=== PATIENT | male | born 1955 | race Caucasian/White ===

== ENCOUNTER 2019-07-28 09:02 | Day surgery (SDC) | payer BC ==
[~2019-07-28] VITALS: Ht 185.4 cm; Wt 75.0 kg
[2019-07-28] MEDS ORDERED: SODIUM CHLORIDE 0.9% 1,000 ML IV SCH (09:24)
[2019-07-28 09:27] VITALS: BP 142/71
[2019-07-28] MEDS ORDERED: HYDR25TA6 PO (09:40)
[2019-07-28 09:57] LABS: BASOPHILS # (AUTO) 0.06 x10^3/uL (0-0.1); BASOPHILS % (AUTO) 1 % (0-1); EOSINOPHILS # (AUTO) 0.21 x10^3/uL (0-0.4); EOSINOPHILS % (AUTO) 3 % (1-7); LYMPHOCYTES # (AUTO) 1.93 x10^3/uL (1-3.4); LYMPHOCYTES % (AUTO) 26 % (22-44); MD NO; MEAN PLATELET VOLUME 8.9 fL (7.4-10.4); MONOCYTES # (AUTO) 0.66 x10^3/uL (0.2-0.8); MONOCYTES % (AUTO) 9 % (2-9); NEUTROPHILS % (AUTO) 61 % (42-75); PLATELET COUNT 288 x10^3/uL (130-400); RED BLOOD COUNT 4.69 x10^6/uL (4.38-5.82); RED CELL DISTRIBUTION WIDTH 12.9 % (9.4-14.8)
[2019-07-28 10:01] LABS: ANION GAP 9 mmol/L (5-15); CALCIUM 8.6 mg/dL (8.5-10.1); CHLORIDE 106 mmol/L (98-107)
[2019-07-28] MEDS ORDERED: FENTANYL PF 100 MCG/2ML ONE (10:49)
[2019-07-28] MEDS ORDERED: LIDOCAINE 2%, 20ML ONE (10:49)
[2019-07-28] MEDS ORDERED: MIDAZOLAM 1 MG/ML, 5ML ONE (10:49)
== END 2019-07-28 14:09 | disposition home or self-care (01) ==
LOC: CACL 09:02
PROVIDERS: ATTEND Internal Medicine Cardiovascular Disease
DX: Z01.810 Encounter for preprocedural cardiovascular examination (principal); Q23.1 Congenital insufficiency of aortic valve; I25.10 Atherosclerotic heart disease of native coronary artery without angina pectoris; I25.84 Coronary atherosclerosis due to calcified coronary lesion; I10 Essential (primary) hypertension; Z79.899 Other long term (current) drug therapy; Z90.49 Acquired absence of other specified parts of digestive tract; Z98.890 Other specified postprocedural states; Z82.49 Family history of ischemic heart disease and other diseases of the circulatory system; Z82.3 Family history of stroke; Z83.3 Family history of diabetes mellitus
CPT/HCPCS: 36415; 80048; 85025; 93454; 99156; C1769; C1894; J2250; J3010; Q9967

== ENCOUNTER 2019-08-08 07:30 | Inpatient (IN) | payer BC ==
[~2019-08-08] VITALS: Ht 185.4 cm; Wt 78.0 kg
[~2019-08-08 07:30] MED LIST: HYDR25TA6 PO
[2019-09-03 13:20] LABS: MICROSCOPIC NOT IND
[2019-09-03 13:26] LABS: BASOPHILS # (AUTO) 0.03 x10^3/uL (0-0.1); BASOPHILS % (AUTO) 0 % (0-1); EOSINOPHILS # (AUTO) 0.34 x10^3/uL (0-0.4); EOSINOPHILS % (AUTO) 5 % (1-7); LYMPHOCYTES # (AUTO) 1.96 x10^3/uL (1-3.4); LYMPHOCYTES % (AUTO) 26 % (22-44); MD NO; MEAN CORPUSCULAR HEMOGLOBIN 30.2 pg (27.5-34.5); MEAN CORPUSCULAR HGB CONC 33.6 g/dL (33.2-36.2); MEAN CORPUSCULAR VOLUME 89.8 fL (81-97); MEAN PLATELET VOLUME 8.8 fL (7.4-10.4); MONOCYTES # (AUTO) 0.75 x10^3/uL (0.2-0.8); MONOCYTES % (AUTO) 10 % (2-9); NEUTROPHILS # (AUTO) 4.45 x10^3/uL (1.8-6.8); NEUTROPHILS % (AUTO) 59 % (42-75); PLATELET COUNT 273 x10^3/uL (130-400); RED BLOOD COUNT 5.02 x10^6/uL (4.38-5.82); RED CELL DISTRIBUTION WIDTH 13.4 % (9.4-14.8)
[2019-09-03 13:36] LABS: INTERNATIONAL NORMALIZED RATIO 0.99 (0.93-1.1); PROTHROMBIN TIME 10.5 Seconds (9.6-11.5)
[2019-09-03 13:37] LABS: ALANINE AMINOTRANSFERASE 21 U/L (12-78); ALBUMIN 4.1 g/dL (3.4-5.0); CALCIUM 9.8 mg/dL (8.5-10.1); CREATININE 0.88 mg/dL (0.7-1.3)
[2019-09-03 13:42] LABS: ALKALINE PHOSPHATASE 54 U/L (45-117); ANION GAP 5 mmol/L (5-15); BILIRUBIN,TOTAL 0.3 mg/dL (0.2-1.0); CHLORIDE 102 mmol/L (98-107); TOTAL PROTEIN 7.9 g/dL (6.4-8.2)
[2019-09-04 04:46] VITALS: BP_SYST 117; BP_SYST 137; BP_DIAS 74; BP_DIAS 75
[2019-09-04] MEDS ORDERED: DO NOT GIVE MC SCH (05:00)
[2019-09-04] MEDS ORDERED: INSULIN LISPRO 100 UNITS/ML, PEN SQ-INSULIN SCH (05:00)
[2019-09-04] MEDS ORDERED: CHLORHEXIDINE 15 ML UDC MM SCH (05:00)
[2019-09-04] MEDS: MUPIROCIN OINT 2%, 22GM TP SCH ×2 (05:33→20:47)
[2019-09-04 06:05] VITALS: BP_SYST 119; BP_SYST 123; BP_DIAS 66; BP_DIAS 72
[2019-09-04 06:27] VITALS: BP 107/71
[2019-09-04] MEDS ORDERED: MIDAZOLAM 10MG/2 ML ONE (06:39)
[2019-09-04] MEDS ORDERED: FENTANYL PF 250 MCG/5ML ONE ×4 (06:39→06:40)
[2019-09-04] MEDS ORDERED: ROCURONIUM 10MG/ML,5ML ONE ×3 (06:40→08:37)
[2019-09-04] MEDS ORDERED: AMINOCAPROIC ACID 250 MG/ML, 20ML ONE ×2 (06:40)
[2019-09-04] MEDS ORDERED: PROPOFOL 10 MG/ML, 20ML ONE (06:40)
[2019-09-04] MEDS ORDERED: MAGNESIUM SULFATE PMX 2GM/50ML 50 ML ONE (06:51)
[2019-09-04] MEDS ORDERED: PAPAVERINE 30 MG/ML, 2ML ONE (06:57)
[2019-09-04] MEDS ORDERED: HEPARIN 1,000 UNITS/ML, 10ML ONE (06:57)
[2019-09-04] MEDS ORDERED: METOPROLOL 1 MG/ML, 5ML ONE (07:22)
[2019-09-04] MEDS ORDERED: PROTAMINE SULFATE 10 MG/ML, 25ML ONE (07:25)
[2019-09-04] MEDS ORDERED: AMIODARONE 50 MG/ML, 3ML ONE (07:25)
[2019-09-04] MEDS ORDERED: NITROGLYCERIN/D5W PMX 250 ML IV PRN (07:28)
[2019-09-04] MEDS ORDERED: DEXMEDETOMIDINE 200 MCG in SODIUM CHLORIDE 0.9% 48 ML IV PRN ×2 (07:28→07:30)
[2019-09-04] MEDS ORDERED: DOBUTAMINE 250 MG in SODIUM CHLORIDE 0.9% 230 ML IV PRN (07:28)
[2019-09-04] MEDS ORDERED: SODIUM CHLORIDE 0.9% 1,000 ML IV PRN (07:28)
[2019-09-04] MEDS ORDERED: PHENYLEPHRINE 50 MG in SODIUM CHLORIDE 0.9% 245 ML IV PRN ×2 (07:28→07:30)
[2019-09-04] MEDS ORDERED: REGULAR INSULIN 100 UNITS in SODIUM CHLORIDE 0.9% 99 ML IV PRN ×2 (07:28→07:30)
[2019-09-04] MEDS ORDERED: VASOPRESSIN 20 UNIT in SODIUM CHLORIDE 0.9% 99 ML IV PRN (07:28)
[2019-09-04] MEDS: KSCALE TO 4.5 IV SCH ×3 (07:30→21:33)
[2019-09-04] MEDS ORDERED: SODIUM BICARB 8.4%, 50ML SYRINGE IV PRN (07:30)
[2019-09-04] MEDS ORDERED: INSULIN REGULAR 100 UNITS/ML, 3ML VIAL IVPush PRN (07:30)
[2019-09-04] MEDS ORDERED: PROCHLORPERAZINE 5 MG/ML, 2ML IVPush PRN (07:30)
[2019-09-04] MEDS ORDERED: POTASSIUM CHLORIDE 80 MEQ, SODIUM BICARBONATE 8.4% 10 MEQ, MAGNESIUM SULFATE 0.5 GM, LI... IV PRN (07:30)
[2019-09-04] MEDS ORDERED: MIDAZOLAM 1 MG/ML, 5ML IVPush PRN (07:30)
[2019-09-04] MEDS ORDERED: ACETAMINOPHEN 650 MG SUPP PR PRN (07:30)
[2019-09-04] MEDS ORDERED: BISACODYL 10 MG SUPP PR PRN (07:30)
[2019-09-04] MEDS ORDERED: DEXTROSE 50%, 50ML SYRINGE IVPush PRN (07:30)
[2019-09-04] MEDS ORDERED: GLUCAGON 1 MG IM PRN (07:30)
[2019-09-04] MEDS ORDERED: BISACODYL 5 MG EC TABLET PO PRN (07:30)
[2019-09-04] MEDS ORDERED: FENTANYL PF 100 MCG/2ML IVPush PRN (07:30)
[2019-09-04] MEDS ORDERED: CEFUROXIME 1.5 GM in SODIUM CHLORIDE 0.9% 50 ML IVPB PRN (07:30)
[2019-09-04] MEDS ORDERED: HYDROcodone/APAP 5/325 TABLET PO PRN (07:30)
[2019-09-04] MEDS ORDERED: VANCOMYCIN 1,100 MG in SODIUM CHLORIDE 0.9% 250 ML IV PRN (07:30)
[2019-09-04] MEDS ORDERED: LACTATED RINGERS 1,000 ML IV PRN (07:30)
[2019-09-04] MEDS ORDERED: EPINEPHRINE 5 MG in SODIUM CHLORIDE 0.9% 245 ML IV PRN ×2 (07:30)
[2019-09-04] MEDS ORDERED: ALBUMIN HUMAN 5% 500 ML IV PRN (07:30)
[2019-09-04] MEDS ORDERED: ACETAMINOPHEN 325 MG TABLET PO PRN (07:30)
[2019-09-04] MEDS ORDERED: MANNITOL PMX 20% 500 ML IVPB PRN (07:30)
[2019-09-04] MEDS ORDERED: DEXTROSE 4 GM TAB.CHEW PO PRN (07:30)
[2019-09-04] MEDS: DOCUSATE 100 MG CAPSULE PO SCH ×2 (09:00→20:40)
[2019-09-04] MEDS: SODIUM CHLORIDE FLUSH 10ML SYR IVF SCH ×4 (09:00→20:40)
[2019-09-04] MEDS ORDERED: HEPARIN 1,000 UNITS/ML, 10ML IV ONE (09:00)
[2019-09-04] MEDS ORDERED: PAPAVERINE 30 MG/ML, 2ML IVPush ONE (09:33)
[2019-09-04] MEDS ORDERED: CALCIUM CHLORIDE 10%, 10ML SYR ONE (11:03)
[2019-09-04] MEDS ORDERED: LIDOCAINE-MPF 2% ,5ML ONE (12:09)
[2019-09-04] MEDS ORDERED: ALBUMIN HUMAN 25% 50 ML ONE (12:09)
[2019-09-04] MEDS ORDERED: methylPREDNISolone SOD SUCC 125 MG/2 ML ONE (12:09)
[2019-09-04] MEDS ORDERED: SODIUM BICARBONATE 1 MEQ/ML, 50ML VIAL ONE (12:09)
[2019-09-04] MEDS ORDERED: HEPARIN 1,000 UNITS/ML, 30ML ONE (12:09)
[2019-09-04] MEDS: MAGNESIUM SULFATE 1 GM in SODIUM CHLORIDE 0.9% 100 ML IVPB SCH (12:14)
[2019-09-04 12:28] LABS: GLUCOSE BY BLOOD GAS ANALYZER 110 mg/dL (70-110); HEMOGLOBIN BY BLOOD GAS ANALYZ 11.6 g/dL (14.0-18.0); POTASSIUM BY BLOOD GAS ANALYZR 3.3 mmol/L (3.6-5.5)
[2019-09-04 12:40] LABS: INTERNATIONAL NORMALIZED RATIO 1.3 (0.93-1.1); PROTHROMBIN TIME 13.8 Seconds (9.6-11.5)
[2019-09-04] MEDS ORDERED: POTASSIUM CHLORIDE 30 MEQ in SODIUM CHLORIDE 0.9% 100 ML IV ONE (13:00)
[2019-09-04] MEDS: INSULIN LISPRO 100 UNITS/ML, PEN SQ-INSULIN SCH ×3 (13:20→20:46)
[2019-09-04] MEDS: MUPIROCIN OINT 2%, 22GM NAS SCH ×2 (13:23→20:41)
[2019-09-04] MEDS: OXYcodone IR 5MG TABLET PO PRN ×4 (15:08→22:50)
[2019-09-04] MEDS: HYDROcodone/APAP 10/325 MG TABLET PO PRN ×2 (16:44→20:40)
[2019-09-04] MEDS: ONDANSETRON 2MG/ML, 2ML IVPush PRN (16:50)
[2019-09-04] MEDS: CEFUROXIME 1.5 GM in SODIUM CHLORIDE 0.9% 50 ML IVPB SCH (20:21)
[2019-09-04] MEDS: VANCOMYCIN 1,100 MG in SODIUM CHLORIDE 0.9% 250 ML IVPB SCH (21:33)
[2019-09-05] MEDS: HYDROcodone/APAP 10/325 MG TABLET PO PRN ×3 (00:45→22:03)
[2019-09-05] MEDS: OXYcodone IR 5MG TABLET PO PRN ×3 (04:08→11:57)
[2019-09-05 04:36] LABS: MEAN CORPUSCULAR HEMOGLOBIN 30.1 pg (27.5-34.5); MEAN CORPUSCULAR HGB CONC 33.4 g/dL (33.2-36.2); MEAN CORPUSCULAR VOLUME 90.2 fL (81-97); MEAN PLATELET VOLUME 9.1 fL (7.4-10.4); PLATELET COUNT 157 x10^3/uL (130-400); RED BLOOD COUNT 3.76 x10^6/uL (4.38-5.82); RED CELL DISTRIBUTION WIDTH 13.1 % (9.4-14.8)
[2019-09-05 04:39] LABS: INTERNATIONAL NORMALIZED RATIO 1.06 (0.93-1.1); PROTHROMBIN TIME 11.2 Seconds (9.6-11.5)
[2019-09-05 04:42] LABS: ALBUMIN 3.2 g/dL (3.4-5.0); ANION GAP 5 mmol/L (5-15); CALCIUM 8.1 mg/dL (8.5-10.1); CHLORIDE 111 mmol/L (98-107)
[2019-09-05 04:47] LABS: MD YES
[2019-09-05 04:53] VITALS: BP 94/53
[2019-09-05 04:53] LABS: <PLATELET ESTIMATE> ADEQUATE; <PLT MORPHOLOGY> NORMAL PLT MORPH; <RBC MORPHOLOGY> NORMAL; BAND#(MANUAL) 0.98 x10^3/uL; BANDS%(MANUAL) 5 % (0-7); LYMPH#(MANUAL) 1.57 x10^3/uL (1-3.4); LYMPHS% (MANUAL) 8 % (22-44); MONOS#(MANUAL) 1.76 x10^3/uL (0.3-2.7); MONOS% (MANUAL) 9 % (2-9); SEG#(MANUAL) 15.29 x10^3/uL (1.8-6.8); SEGS% (MANUAL) 78 % (42-75)
[2019-09-05] MEDS: KSCALE TO 4.5 IV SCH (06:17)
[2019-09-05] MEDS ORDERED: POTASSIUM CHLORIDE PMX 100 ML IV ONE (06:30)
[2019-09-05] MEDS ORDERED: MAGNESIUM HYDROXIDE 8%, 30ML UDC PO PRN (08:00)
[2019-09-05] MEDS: INSULIN LISPRO 100 UNITS/ML, PEN SQ-INSULIN SCH ×4 (08:05→20:35)
[2019-09-05] MEDS: VANCOMYCIN 1,100 MG in SODIUM CHLORIDE 0.9% 250 ML IVPB SCH (08:24)
[2019-09-05] MEDS: CHLORHEXIDINE 15 ML UDC MM SCH ×2 (08:24→20:15)
[2019-09-05] MEDS: FUROSEMIDE 20 MG/2 ML IV SCH (08:24)
[2019-09-05] MEDS: KETOROLAC 30 MG/1 ML IVPush SCH ×3 (08:24→20:15)
[2019-09-05] MEDS: DOCUSATE 100 MG CAPSULE PO SCH ×2 (08:25→20:15)
[2019-09-05] MEDS: POTASSIUM CHLORIDE 10 MEQ TABLET.ER PO SCH (08:25)
[2019-09-05] MEDS: ASPIRIN 81 MG TABLET EC PO SCH (08:25)
[2019-09-05] MEDS: SODIUM CHLORIDE FLUSH 10ML SYR IVF SCH ×5 (08:26→20:35)
[2019-09-05] MEDS: MUPIROCIN OINT 2%, 22GM NAS SCH ×2 (08:28→22:02)
[2019-09-05] MEDS: CEFUROXIME 1.5 GM in SODIUM CHLORIDE 0.9% 50 ML IVPB SCH (08:49)
[2019-09-05] MEDS: MAGNESIUM SULFATE 1 GM in SODIUM CHLORIDE 0.9% 100 ML IVPB SCH (10:19)
[2019-09-05 11:58] VITALS: BP 91/57
[2019-09-05] MEDS: ONDANSETRON 2MG/ML, 2ML IVPush PRN (12:19)
[2019-09-05 13:54] VITALS: BP 90/50
[2019-09-05 16:20] VITALS: BP 110/64
[2019-09-05 19:11] VITALS: BP 112/61
[2019-09-05] MEDS: ATORVASTATIN 40 MG TABLET PO SCH (20:15)
[2019-09-06 01:05] VITALS: BP 107/57
[2019-09-06] MEDS: KETOROLAC 30 MG/1 ML IVPush SCH ×4 (02:06→21:48)
[2019-09-06] MEDS: HYDROcodone/APAP 10/325 MG TABLET PO PRN (05:50)
[2019-09-06 06:00] LABS: INTERNATIONAL NORMALIZED RATIO 1.07 (0.93-1.1); PROTHROMBIN TIME 11.4 Seconds (9.6-11.5)
[2019-09-06 06:01] LABS: ANION GAP 5 mmol/L (5-15); CALCIUM 7.9 mg/dL (8.5-10.1); CHLORIDE 101 mmol/L (98-107); CREATININE 0.78 mg/dL (0.7-1.3)
[2019-09-06 06:07] LABS: MEAN CORPUSCULAR HGB CONC 33.3 g/dL (33.2-36.2); MEAN CORPUSCULAR VOLUME 89.9 fL (81-97); RED BLOOD COUNT 3.26 x10^6/uL (4.38-5.82); RED CELL DISTRIBUTION WIDTH 13.7 % (9.4-14.8)
[2019-09-06 06:34] LABS: MD YES; MEAN PLATELET VOLUME 9.5 fL (7.4-10.4); PLATELET COUNT 115 x10^3/uL (130-400)
[2019-09-06 06:36] LABS: LYMPH#(MANUAL) 2.12 x10^3/uL (1-3.4); LYMPHS% (MANUAL) 12 % (22-44); MONOS#(MANUAL) 1.77 x10^3/uL (0.3-2.7); MONOS% (MANUAL) 10 % (2-9); SEG#(MANUAL) 13.81 x10^3/uL (1.8-6.8); SEGS% (MANUAL) 78 % (42-75)
[2019-09-06 06:38] LABS: <RBC MORPHOLOGY> NORMAL
[2019-09-06 06:40] LABS: <PLATELET ESTIMATE> DECREASED; <PLT MORPHOLOGY> NORMAL PLT MORPH
[2019-09-06] MEDS: INSULIN LISPRO 100 UNITS/ML, PEN SQ-INSULIN SCH ×4 (07:00→20:30)
[2019-09-06 07:28] VITALS: BP 127/67
[2019-09-06] MEDS: SODIUM CHLORIDE FLUSH 10ML SYR IVF SCH ×6 (09:00→20:20)
[2019-09-06] MEDS: ASPIRIN 81 MG TABLET EC PO SCH (09:18)
[2019-09-06] MEDS: DOCUSATE 100 MG CAPSULE PO SCH ×2 (09:18→20:20)
[2019-09-06] MEDS: POTASSIUM CHLORIDE 10 MEQ TABLET.ER PO SCH (09:18)
[2019-09-06] MEDS: CHLORHEXIDINE 15 ML UDC MM SCH ×2 (09:18→20:21)
[2019-09-06] MEDS: MUPIROCIN OINT 2%, 22GM NAS SCH ×2 (09:19→20:21)
[2019-09-06] MEDS: FUROSEMIDE 20 MG/2 ML IV SCH (09:19)
[2019-09-06] MEDS: MAGNESIUM SULFATE 1 GM in SODIUM CHLORIDE 0.9% 100 ML IVPB SCH (09:34)
[2019-09-06 13:05] VITALS: BP 125/71
[2019-09-06] MEDS: ONDANSETRON 2MG/ML, 2ML IVPush PRN (16:26)
[2019-09-06 16:34] VITALS: BP 134/74
[2019-09-06] MEDS ORDERED: OMNIPAQUE 350 MG/ML, 100ML BOTTLE ONE (17:40)
[2019-09-06 20:04] VITALS: BP 133/77
[2019-09-06] MEDS: ATORVASTATIN 40 MG TABLET PO SCH (20:19)
[2019-09-06] MEDS: METOPROLOL TARTRATE 25 MG TAB PO SCH (20:20)
[2019-09-06] MEDS: CLOPIDOGREL 75 MG TABLET PO SCH (20:20)
[2019-09-07 00:33] VITALS: BP 130/74
[2019-09-07] MEDS: METOPROLOL TARTRATE 25 MG TAB PO SCH ×2 (04:44→17:22)
[2019-09-07] MEDS: KETOROLAC 30 MG/1 ML IVPush SCH ×4 (04:44→21:59)
[2019-09-07 05:12] LABS: MEAN CORPUSCULAR HEMOGLOBIN 30.4 pg (27.5-34.5); MEAN CORPUSCULAR HGB CONC 33.9 g/dL (33.2-36.2); MEAN CORPUSCULAR VOLUME 89.9 fL (81-97); PLATELET COUNT 123 x10^3/uL (130-400); RED BLOOD COUNT 3.26 x10^6/uL (4.38-5.82); RED CELL DISTRIBUTION WIDTH 13.3 % (9.4-14.8)
[2019-09-07 05:21] LABS: ANION GAP 6 mmol/L (5-15); CALCIUM 8.2 mg/dL (8.5-10.1); CHLORIDE 102 mmol/L (98-107); CREATININE 0.66 mg/dL (0.7-1.3)
[2019-09-07 05:39] LABS: BASOPHILS # (AUTO) 0.07 x10^3/uL (0-0.1); BASOPHILS % (AUTO) 1 % (0-1); EOSINOPHILS # (AUTO) 0.01 x10^3/uL (0-0.4); EOSINOPHILS % (AUTO) 0 % (1-7); LYMPHOCYTES # (AUTO) 0.88 x10^3/uL (1-3.4); LYMPHOCYTES % (AUTO) 7 % (22-44); MD SCAN; MONOCYTES # (AUTO) 1.56 x10^3/uL (0.2-0.8); MONOCYTES % (AUTO) 12 % (2-9); NEUTROPHILS % (AUTO) 80 % (42-75)
[2019-09-07 07:09] VITALS: BP 121/68
[2019-09-07] MEDS: INSULIN LISPRO 100 UNITS/ML, PEN SQ-INSULIN SCH ×2 (07:17→11:00)
[2019-09-07] MEDS ORDERED: CLOPIDOGREL 75 MG TABLET PO SCH (09:00)
[2019-09-07] MEDS: SODIUM CHLORIDE FLUSH 10ML SYR IVF SCH ×6 (09:00→20:11)
[2019-09-07] MEDS: DOCUSATE 100 MG CAPSULE PO SCH ×2 (09:36→20:10)
[2019-09-07] MEDS: POTASSIUM CHLORIDE 10 MEQ TABLET.ER PO SCH (09:37)
[2019-09-07] MEDS: ASPIRIN 81 MG TABLET EC PO SCH (09:37)
[2019-09-07] MEDS: CLOPIDOGREL 75 MG TABLET PO SCH (09:37)
[2019-09-07] MEDS: FUROSEMIDE 40 MG/4 ML IV SCH (09:38)
[2019-09-07] MEDS: MUPIROCIN OINT 2%, 22GM NAS SCH ×2 (09:39→20:10)
[2019-09-07 12:25] VITALS: BP 129/77
--- NOTE | 2019-09-07 13:04 | NUR ---
REC: regular/thins; do not anticipate need for [employer] intervention in regards to dysphagia at time of discharge. Addendum: 09/07/19 at 1305 by Cherelle SINGH Amended: Links added.
[2019-09-07 19:23] VITALS: BP 122/78
[2019-09-07] MEDS: ATORVASTATIN 40 MG TABLET PO SCH (20:10)
[2019-09-08 01:41] VITALS: BP 106/59
[2019-09-08 05:05] LABS: MEAN CORPUSCULAR HEMOGLOBIN 30.3 pg (27.5-34.5); MEAN CORPUSCULAR HGB CONC 33.9 g/dL (33.2-36.2); MEAN CORPUSCULAR VOLUME 89.4 fL (81-97); MEAN PLATELET VOLUME 9.2 fL (7.4-10.4); PLATELET COUNT 156 x10^3/uL (130-400); RED CELL DISTRIBUTION WIDTH 13.4 % (9.4-14.8)
[2019-09-08 05:07] LABS: ANION GAP 5 mmol/L (5-15); CALCIUM 8.2 mg/dL (8.5-10.1); CHLORIDE 104 mmol/L (98-107); CREATININE 0.68 mg/dL (0.7-1.3)
[2019-09-08 05:31] VITALS: BP 111/58
[2019-09-08] MEDS: METOPROLOL TARTRATE 25 MG TAB PO SCH ×2 (05:34→18:01)
[2019-09-08] MEDS: KETOROLAC 30 MG/1 ML IVPush SCH ×3 (05:35→18:01)
[2019-09-08 05:56] LABS: BASOPHILS # (AUTO) 0.04 x10^3/uL (0-0.1); BASOPHILS % (AUTO) 0 % (0-1); EOSINOPHILS # (AUTO) 0.06 x10^3/uL (0-0.4); EOSINOPHILS % (AUTO) 1 % (1-7); LYMPHOCYTES # (AUTO) 1.01 x10^3/uL (1-3.4); LYMPHOCYTES % (AUTO) 10 % (22-44); MD SCAN; MONOCYTES # (AUTO) 1.52 x10^3/uL (0.2-0.8); MONOCYTES % (AUTO) 15 % (2-9); NEUTROPHILS # (AUTO) 7.73 x10^3/uL (1.8-6.8); NEUTROPHILS % (AUTO) 75 % (42-75)
[2019-09-08 08:15] VITALS: BP 117/69
[2019-09-08] MEDS: CLOPIDOGREL 75 MG TABLET PO SCH (09:25)
[2019-09-08] MEDS: DOCUSATE 100 MG CAPSULE PO SCH ×2 (09:25→20:36)
[2019-09-08] MEDS: POTASSIUM CHLORIDE 10 MEQ TABLET.ER PO SCH (09:25)
[2019-09-08] MEDS: ASPIRIN 81 MG TABLET EC PO SCH (09:25)
[2019-09-08] MEDS: FUROSEMIDE 40 MG/4 ML IV SCH (09:26)
[2019-09-08] MEDS: SODIUM CHLORIDE FLUSH 10ML SYR IVF SCH ×6 (09:34→20:37)
[2019-09-08] MEDS: MUPIROCIN OINT 2%, 22GM NAS SCH ×2 (09:41→20:36)
[2019-09-08 12:53] VITALS: BP 120/67
[2019-09-08 19:09] VITALS: BP 122/66
[2019-09-08] MEDS: ATORVASTATIN 40 MG TABLET PO SCH (20:36)
[2019-09-09 01:30] VITALS: BP 125/71
[2019-09-09 05:56] VITALS: BP 113/69
[2019-09-09] MEDS: KETOROLAC 30 MG/1 ML IVPush SCH ×3 (05:57→12:26)
[2019-09-09] MEDS: METOPROLOL TARTRATE 25 MG TAB PO SCH (05:58)
[2019-09-09 06:16] LABS: BASOPHILS # (AUTO) 0.02 x10^3/uL (0-0.1); BASOPHILS % (AUTO) 0 % (0-1); EOSINOPHILS # (AUTO) 0.37 x10^3/uL (0-0.4); EOSINOPHILS % (AUTO) 4 % (1-7); LYMPHOCYTES # (AUTO) 1.23 x10^3/uL (1-3.4); LYMPHOCYTES % (AUTO) 14 % (22-44); MD NO; MEAN CORPUSCULAR HEMOGLOBIN 29.5 pg (27.5-34.5); MEAN CORPUSCULAR HGB CONC 32.9 g/dL (33.2-36.2); MEAN CORPUSCULAR VOLUME 89.6 fL (81-97); MEAN PLATELET VOLUME 8.4 fL (7.4-10.4); MONOCYTES # (AUTO) 1.14 x10^3/uL (0.2-0.8); MONOCYTES % (AUTO) 13 % (2-9); NEUTROPHILS # (AUTO) 6.26 x10^3/uL (1.8-6.8); NEUTROPHILS % (AUTO) 69 % (42-75); PLATELET COUNT 217 x10^3/uL (130-400); RED BLOOD COUNT 3.61 x10^6/uL (4.38-5.82); RED CELL DISTRIBUTION WIDTH 13.8 % (9.4-14.8)
[2019-09-09 06:19] LABS: ANION GAP 7 mmol/L (5-15); CALCIUM 8.4 mg/dL (8.5-10.1); CHLORIDE 107 mmol/L (98-107); CREATININE 0.69 mg/dL (0.7-1.3)
[2019-09-09 06:50] VITALS: BP 126/71
[2019-09-09] MEDS ORDERED: ASPI81TA45 PO (08:16)
[2019-09-09] MEDS ORDERED: METO25TA35 PO (08:16)
[2019-09-09] MEDS ORDERED: CLOP75TA PO (08:16)
[2019-09-09] MEDS ORDERED: ATOR40TA78 PO (08:16)
[2019-09-09] MEDS: SODIUM CHLORIDE FLUSH 10ML SYR IVF SCH ×3 (09:00)
[2019-09-09] MEDS: DOCUSATE 100 MG CAPSULE PO SCH (09:00)
[2019-09-09] MEDS ORDERED: FUROSEMIDE 40 MG TABLET ONE (09:07)
[2019-09-09] MEDS: ASPIRIN 81 MG TABLET EC PO SCH (09:14)
[2019-09-09] MEDS: CLOPIDOGREL 75 MG TABLET PO SCH (09:14)
[2019-09-09] MEDS: POTASSIUM CHLORIDE 10 MEQ TABLET.ER PO SCH (09:14)
[2019-09-09] MEDS ORDERED: FUROSEMIDE 20 MG TABLET PO ONE (09:30)
== END 2019-09-09 13:00 | disposition home or self-care (01) | DRG 219 ==
LOC: 5SO 09-04 04:34 → CCU 09-04 09:05 → 5SO 09-05 11:49
PROVIDERS: ADMIT Thoracic Surgery (Cardiothoracic Vascular Surgery); ATTEND Thoracic Surgery (Cardiothoracic Vascular Surgery)
PROC: 02100Z9 Bypass Coronary Artery, One Artery from Left Internal Mammary, Open Approach (ICD-10-PCS; 2019-09-04)
PROC: 021009W Bypass Coronary Artery, One Artery from Aorta with Autologous Venous Tissue, Open Approach (ICD-10-PCS; 2019-09-04)
PROC: 06BP4ZZ Excision of Right Saphenous Vein, Percutaneous Endoscopic Approach (ICD-10-PCS; 2019-09-04)
PROC: B24BZZ4 Ultrasonography of Heart with Aorta, Transesophageal (ICD-10-PCS; 2019-09-04)
PROC: 5A1221Z Performance of Cardiac Output, Continuous (ICD-10-PCS; 2019-09-04)
PROC: 03HY32Z Insertion of Monitoring Device into Upper Artery, Percutaneous Approach (ICD-10-PCS; 2019-09-04)
PROC: 02HV33Z Insertion of Infusion Device into Superior Vena Cava, Percutaneous Approach (ICD-10-PCS; 2019-09-04)
PROC: B548ZZA Ultrasonography of Superior Vena Cava, Guidance (ICD-10-PCS; 2019-09-04)
PROC: 02RF08Z Replacement of Aortic Valve with Zooplastic Tissue, Open Approach (ICD-10-PCS; principal; 2019-09-04 07:30)
DX: I25.10 Atherosclerotic heart disease of native coronary artery without angina pectoris (principal); I63.81 Other cerebral infarction due to occlusion or stenosis of small artery; I47.2 Ventricular tachycardia; I35.0 Nonrheumatic aortic (valve) stenosis; I49.3 Ventricular premature depolarization; Z79.02 Long term (current) use of antithrombotics/antiplatelets; Z79.82 Long term (current) use of aspirin; Z00.6 Encounter for examination for normal comparison and control in clinical research program
CPT/HCPCS: 36415; 36600; J3490; S0017; 70450; 70496; 70498; 70551; 71045; 71046; 80048; 80053; 81003; 82040; 82330; 82800; 82803; 82810; 82947; 82962; 83036; 83735; 84132; 84295; 85014; 85018; 85025; 85049; 85347; 85610; 85730; 86850; 86900; 86923; 87081; 88305; 93005; 93312; 93321; 93325; 93880; 93970; 94002; 94150; C1768; G0378; J0171; J0697; J1644; J1815; J1885; J1940; J2250; J2405; J2704; J2720; J3010; J3370; J3475; J3480; P9045; P9047; Q9967; C1760; J0282; J2370; J2440; J2930; J7050; J7120

== ENCOUNTER → 2019-10-31 | Outpatient (CLI) | payer BC ==
[~2019-10-31] MED LIST changes: +ASPI81TA45 PO; +ATOR40TA78 PO; +CLOP75TA PO; +METO25TA35 PO
== END | disposition home or self-care (01) ==
LOC: CFH 12:47
PROVIDERS: ATTEND Internal Medicine Cardiovascular Disease
DX: I34.0 Nonrheumatic mitral (valve) insufficiency (principal); I10 Essential (primary) hypertension; Z95.1 Presence of aortocoronary bypass graft
CPT/HCPCS: 93306

== ENCOUNTER → 2020-08-24 | Outpatient (CLI) | payer BC | END | disposition home or self-care (01) | LOC: CVU 10:34 | PROVIDERS: ATTEND Psychiatry & Neurology Neurology | DX: I65.23 Occlusion and stenosis of bilateral carotid arteries (principal); I63.9 Cerebral infarction, unspecified; Z95.4 Presence of other heart-valve replacement; Z95.1 Presence of aortocoronary bypass graft | CPT/HCPCS: 93880 ==